=== PATIENT | female | born 1980 | race African-American/Black ===

== ENCOUNTER 2017-02-10 09:43 | Outpatient (CLI) | payer MEDICARE, MEDICAID ==
[2017-02-10 11:03] LABS: #Basophils 0.1 thou/uL (0.0-0.2); #Eosinphils 0.1 thou/uL (0.0-0.7); #Lymphocytes 2.2 thou/uL (1.20-3.40); #Monocytes 0.6 thou/uL (0.11-0.59); #Neutrophils 4.5 thou/uL (1.40-6.50); %Basophils 0.8 % (0.0-1.0); %Eosinophils 1.7 % (0.0-10.0); %Lymphocytes 29.2 % (21.0-51.0); %Monocytes 8.3 % (0.0-10.0); %Neutrophils 60.1 % (42.0-75.0); Hemoglobin 11.1 g/dL (12.0-16.0); Mean Corpuscular HGB CONC 32.6 g/dL (32.0-36.0); Mean Corpuscular Volume 86.1 fl (81.0-99.0); Mean Platelet Volume 8.5 fL (7.4-10.4); Platelet Count 281 thou/uL (130-400); RBC Distribution Width 13.9 % (11.5-14.5); Red Blood Cell (RBC) Count 3.96 mill/uL (4.20-5.40); White Blood Cell (WBC) Count 7.4 thou/uL (4.8-10.8)
[2017-02-10 11:18] LABS: Hemoglobin A1c 5.3 % (4.0-6.0)
[2017-02-10 11:20] LABS: ALT (SGPT) 12 U/L (0-55); AST (SGOT) 13 U/L (5-34); Albumin 3.9 g/dL (3.5-5.0); Alkaline Phosphatase 95 U/L (40-150); Anion Gap 13 mmol/L (10-20); BUN (Urea Nitrogen) 10 mg/dL (7.0-18.7); Bilirubin, Total 0.5 mg/dL (0.2-1.2); Calc. Creatinine Clearance 0 mL/min (70-130); Calcium 8.8 mg/dL (7.8-10.44); Carbon Dioxide 23 mmol/L (22-29); Chloride 107 mmol/L (98-107); Cholesterol 125 mg/dL (< 200 Desired); Estimated GFR-MDRD Greater than 90; Globulin 3.7 g/dL (2.4-3.5); Glucose 116 mg/dL (70-105); HDL Cholesterol 31 mg/dL (>60 Neg Risk); LDL Cholesterol, Calculated 82 mg/dL; Potassium 3.4 mmol/L (3.5-5.1); Protein, Total 7.6 g/dL (6.0-8.3); Sodium 140 mmol/L (136-145); Triglycerides 61 mg/dL (Less than 150)
[2017-02-10 17:03] LABS: Creatinine, Urine 200.5 mg/dL (47-110); Microalbumin Urine 1.8 mg/dL (0.5-50.0)
== END 2017-02-10 09:44 | disposition home or self-care (01) ==
LOC: MADLABBHPM 09:43
PROVIDERS: ATTEND Family Medicine
DX: E11.9 Type 2 diabetes mellitus without complications (principal)
CPT/HCPCS: 36415; 80053; 80061; 82043; 83036; 85025

== ENCOUNTER 2017-05-25 09:19 | Outpatient (CLI) | payer MEDICARE, MEDICAID ==
[2017-05-25 10:01] LABS: ALT (SGPT) 11 U/L (8-55); AST (SGOT) 10 U/L (5-34); Albumin 3.8 g/dL (3.5-5.0); Alkaline Phosphatase 108 U/L (40-150); Anion Gap 14 mmol/L (10-20); BUN (Urea Nitrogen) 10 mg/dL (7.0-18.7); Bilirubin, Total 0.5 mg/dL (0.2-1.2); Calc. Creatinine Clearance 0 mL/min (70-130); Calcium 8.9 mg/dL (7.8-10.44); Carbon Dioxide 23 mmol/L (22-29); Cardiac Risk 4.4 (Less than 4.5); Chloride 108 mmol/L (98-107); Cholesterol 145 mg/dl (< 200 Desired); Estimated GFR-MDRD Greater than 90; Globulin 4.2 g/dL (2.4-3.5); Glucose 123 mg/dL (70-105); HDL Cholesterol 33 mg/dL (>60 Neg Risk); LDL Cholesterol, Calculated 98 mg/dL; Potassium 3.5 mmol/L (3.5-5.1); Sodium 141 mmol/L (136-145); Triglycerides 72 mg/dL (Less than 150)
[2017-05-25 10:32] LABS: #Basophils 0.1 thou/uL (0.0-0.2); #Eosinphils 0.1 thou/uL (0.0-0.7); #Lymphocytes 2.9 thou/uL (1.20-3.40); #Monocytes 0.7 thou/uL (0.11-0.59); #Neutrophils 5.4 thou/uL (1.40-6.50); %Basophils 0.7 % (0.0-1.0); %Eosinophils 1.5 % (0.0-10.0); %Monocytes 7.1 % (0.0-10.0); %Neutrophils 58.6 % (42.0-75.0); Hemoglobin 10.8 g/dL (12.0-16.0); Mean Corpuscular HGB CONC 31.9 g/dL (32.0-36.0); Mean Corpuscular Hemoglobin 27.4 pg (27.0-31.0); Mean Platelet Volume 8.5 fL (7.4-10.4); Platelet Count 329 thou/uL (130-400); RBC Distribution Width 14.4 % (11.5-14.5); Red Blood Cell (RBC) Count 3.93 mill/uL (4.20-5.40); White Blood Cell (WBC) Count 9.1 thou/uL (4.8-10.8)
[2017-05-25 10:54] LABS: Hemoglobin A1c 5.4 % (4.0-6.0)
== END 2017-05-25 09:20 | disposition home or self-care (01) ==
LOC: MADLABBHPM 09:19
PROVIDERS: ATTEND Family Medicine
DX: E11.9 Type 2 diabetes mellitus without complications (principal); E66.9 Obesity, unspecified; I10 Essential (primary) hypertension
CPT/HCPCS: 36415; 80053; 80061; 83036; 85025

== ENCOUNTER 2017-10-18 15:58 | Emergency (ER) | payer MEDICARE, MEDICAID ==
[2017-10-18] MEDS ORDERED: Nitroglycerin 0.4 MG TAB 1 EACH ONE (16:16)
[2017-10-18 16:28] LABS: #Basophils 0.1 thou/uL (0.0-0.2); #Eosinphils 0.2 thou/uL (0.0-0.7); #Lymphocytes 2.6 thou/uL (1.20-3.40); #Monocytes 0.6 thou/uL (0.11-0.59); #Neutrophils 3.9 thou/uL (1.40-6.50); %Basophils 1.3 % (0.0-1.0); %Eosinophils 2.6 % (0.0-10.0); %Neutrophils 53.1 % (42.0-75.0); Hemoglobin 10.5 g/dL (12.0-16.0); Mean Corpuscular HGB CONC 31.5 g/dL (32.0-36.0); Mean Corpuscular Hemoglobin 26.3 pg (27.0-31.0); Mean Corpuscular Volume 83.6 fl (81.0-99.0); Mean Platelet Volume 7.8 fL (7.4-10.4); Platelet Count 351 thou/uL (130-400); White Blood Cell (WBC) Count 7.3 thou/uL (4.8-10.8)
[2017-10-18 16:52] LABS: CKMB 0.9 ng/mL (0-6.6); Troponin I Less than 0.010 ng/mL (< 0.028)
[2017-10-18 16:57] LABS: ALT (SGPT) Less than 6 U/L (8-55); AST (SGOT) 9 U/L (5-34); Albumin 3.8 g/dL (3.5-5.0); Alkaline Phosphatase 116 U/L (40-150); Anion Gap 16 mmol/L (10-20); BUN (Urea Nitrogen) 11 mg/dL (7.0-18.7); Bilirubin, Total 0.3 mg/dL (0.2-1.2); CK (CPK) 138 U/L (29-168); Calc. Creatinine Clearance 0 mL/min (70-130); Calcium 8.7 mg/dL (7.8-10.44); Carbon Dioxide 20 mmol/L (22-29); Chloride 109 mmol/L (98-107); Estimated GFR-MDRD 80; Globulin 3.9 g/dL (2.4-3.5); Glucose 130 mg/dL (70-105); Potassium 4.4 mmol/L (3.5-5.1); Protein, Total 7.7 g/dL (6.0-8.3); Sodium 141 mmol/L (136-145)
--- NOTE | 2017-10-18 17:02 | RAD ---
UPRIGHT PORTABLE CHEST ONE VIEW: History: 36-year-old female with chest pain for one day. History of congestive heart failure. FINDINGS: Left ICD. Minimal cardiomegaly. No confluent pneumonia, overt edema or pleural effusion. IMPRESSION: No acute intrathoracic disease. Minimal cardiomegaly. Stable appearance. POS: [facility]
[2017-10-18 18:54] LABS: CKMB 0.9 ng/mL (0-6.6); Troponin I 0.015 ng/mL (< 0.028)
== END 2017-10-18 19:05 | disposition home or self-care (01) ==
LOC: MADERS 15:58
DX: R07.89 Other chest pain (principal); E11.9 Type 2 diabetes mellitus without complications; F32.9 Major depressive disorder, single episode, unspecified; I11.0 Hypertensive heart disease with heart failure; I50.9 Heart failure, unspecified; Z79.899 Other long term (current) drug therapy
CPT/HCPCS: 36415; 71010; 80053; 82553; 83880; 84484; 85025; 85379; 93005; 94760

== ENCOUNTER 2019-01-09 11:02 | Emergency (ER) | payer MEDICAID ==
[2019-01-09] MEDS ORDERED: Ketorolac Tromethamine 60 MG/2 ML VIAL ONE (11:22)
--- NOTE | 2019-01-09 12:14 | RAD ---
PA AND LATERAL CHEST XRAY: DATE: 01/09/2019. HISTORY: Chest pain. COMPARISON: 10/18/2017. FINDINGS: Single-lead left subclavian AICD device remains in place. Cardiac silhouette remains enlarged The p ulmonary vasculature is within normal limits. The lungs are clear. There has been no interval vivas e when compared to the prior exam. Lateral view is under penetrated limiting evaluation, but no pleu ral effusion is identified. IMPRESSION: 1. Stable cardiomegaly without overt congestive heart failure. 2. No acute cardiopulmonary process. POS: [facility]
== END 2019-01-09 12:05 | disposition home or self-care (01) ==
LOC: MADERS 11:02
DX: R07.89 Other chest pain (principal); I11.0 Hypertensive heart disease with heart failure; I50.9 Heart failure, unspecified; E11.9 Type 2 diabetes mellitus without complications; F32.9 Major depressive disorder, single episode, unspecified; Z79.899 Other long term (current) drug therapy
CPT/HCPCS: 71046; 93005; 96372; J1885

== ENCOUNTER 2019-01-25 14:49 | Outpatient (CLI) | payer MEDICAID ==
--- NOTE | 2019-01-25 15:48 | RAD ---
STANDING VIEWS OF BOTH KNEES: 01/25/19 HISTORY: Bilateral knee pain. There is mild bilateral medial compartment narrowing. There is no fractures or joint effusion. IMPRESSION: Mild bilateral medial compartment narrowing. POS: [facility]
== END 2019-01-25 14:50 | disposition home or self-care (01) ==
LOC: MADRAD 14:49
PROVIDERS: ATTEND Family Medicine
DX: M25.561 Pain in right knee (principal); M25.562 Pain in left knee; M25.861 Other specified joint disorders, right knee; M25.862 Other specified joint disorders, left knee
CPT/HCPCS: 73565

== ENCOUNTER 2020-05-10 12:52 | Emergency (ER) | payer MEDICARE, OTHER ==
[2020-05-10 13:50] LABS: Bilirubin Negative (Negative); Blood, Urine Trace (Negative); Glucose, Urine (Dipstick) Negative (Negative); Ketone, Urine Negative (Negative); Leukocyte Negative (Negative); Nitrite Negative (Negative); Protein, Urine (Dipstick) 100 mg/dL (Neg-Trace); Specific Gravity, Urine 1.025 (1.005-1.030)
[2020-05-10 13:52] LABS: Clarity Slightly Cloudy (Clear); RBC/HPF 0-3 HPF (0-3); WBC/HPF 0-3 HPF (0-3)
[2020-05-10 13:53] LABS: Bacteria/HPF 2+ HPF (None Seen)
[2020-05-10 13:56] LABS: Amphetamine Not Detected (NotDetected); Barbiturates Screen Not Detected (NotDetected); Benzodiazepine Screen Not Detected (NotDetected); Cocaine Metabolite Screen Not Detected (NotDetected); Medtox Control Line Valid? VALID (VALID); Methadone Not Detected (NotDetected); Methamphetamine Not Detected (NotDetected); Opiate Screen Not Detected (NotDetected); Oxycodone Screen Not Detected (NotDetected); Phencyclidine (PCP) Not Detected (NotDetected); THC/Cannabinoid Screen Not Detected (NotDetected); Tricyclic Screen Not Detected (NotDetected)
[2020-05-10 14:00] LABS: #Basophils 0.1 thou/uL (0.0-0.2); #Eosinphils 0.1 thou/uL (0.0-0.7); #Lymphocytes 1.3 thou/uL (1.20-3.40); #Monocytes 0.8 thou/uL (0.11-0.59); #Neutrophils 5.5 thou/uL (1.40-6.50); %Basophils 1.1 % (0.0-1.0); %Eosinophils 0.9 % (0.0-10.0); %Lymphocytes 16.7 % (21.0-51.0); %Monocytes 10.1 % (0.0-10.0); %Neutrophils 71.3 % (42.0-75.0); Anisocytosis SLIGHT = 6-15 cells (100X) (0-5/hpf); BHCG - Serum Negative (NEGATIVE); Band 2 % (5-11); Hemoglobin 8.7 g/dL (12.0-16.0); Hypochromia MODERATE=16-30 cells (100X) (0-5/hpf); Lymphocytes 13 % (21-51); MDiff Complete? YES; Macrocytosis SLIGHT = 6-15 cells (100X) (0-5/hpf); Mean Corpuscular HGB CONC 27.5 g/dL (32.0-36.0); Mean Platelet Volume 8.3 fL (7.4-10.4); Monocytes 10 % (0-10); Neutrophil 75 % (42-75); Platelet Count 322 thou/uL (130-400); Platelet Morphology Comment Appears Adequate; RBC Distribution Width 18.1 % (11.5-14.5); Red Blood Cell (RBC) Count 4.61 mill/uL (4.20-5.40); White Blood Cell (WBC) Count 7.8 thou/uL (4.8-10.8)
[2020-05-10 14:01] LABS: Pregs Control Background? CLEAR/WHITE (CLR/WHITE); Pregs Control Bar Appear? YES (CONTROL BAR)
[2020-05-10 14:03] LABS: ALT (SGPT) 24 U/L (8-55); AST (SGOT) 29 U/L (5-34); Albumin 3.4 g/dL (3.5-5.0); Alcohol Less than 10 mg/dL (Less than 10); Alkaline Phosphatase 130 U/L (40-110); Anion Gap 17 mmol/L (10-20); BUN (Urea Nitrogen) 7 mg/dL (7.0-18.7); Calc. Creatinine Clearance 0 mL/min (70-130); Calcium 7.6 mg/dL (7.8-10.44); Carbon Dioxide 36 mmol/L (22-29); Chloride 97 mmol/L (98-107); Estimated GFR-MDRD 80; Globulin 3.3 g/dL (2.4-3.5); Glucose 120 mg/dL (70-105); Protein, Total 6.7 g/dL (6.0-8.3); Sodium 147 mmol/L (136-145)
[2020-05-10 14:13] LABS: Potassium 2.6 mmol/L (3.5-5.1)
[2020-05-10] MEDS ORDERED: NS 0.9% w/ 40 MEQ KCL 1,000 ML IV ONE (14:39)
[2020-05-10] MEDS ORDERED: Aspirin Chewable 81 MG TAB ONE (14:42)
--- NOTE | 2020-05-10 15:41 | RAD ---
FRONTAL RADIOGRAPH CHEST PORTABLE UPRIGHT: Date: 05-10-2020 Comparison: 07-13-19 History: Syncope FINDINGS: Shallow inspiration and boy habitus limit detained assessment. There is marked enlargement of the car diac silhouette suggesting cardiomegaly and/or paracardial fluid. Stable transvenous pacing device. N o pneumothorax, lobar consolidation, or alveolar edema. Assessment of the lung bases is limited on th e basis of body habitus and enlarged cardiac silhouette. IMPRESSION: Portable frontal chest radiograph as described above. POS: [facility]
== END 2020-05-10 16:01 | disposition short-term general hospital (02) ==
LOC: MADERS 12:52
DX: R55 Syncope and collapse (principal); R79.89 Other specified abnormal findings of blood chemistry; E87.0 Hyperosmolality and hypernatremia; E87.6 Hypokalemia; D50.9 Iron deficiency anemia, unspecified; I11.0 Hypertensive heart disease with heart failure; I50.9 Heart failure, unspecified; I48.91 Unspecified atrial fibrillation; F32.9 Major depressive disorder, single episode, unspecified; Z79.899 Other long term (current) drug therapy
CPT/HCPCS: 36415; 71045; 80053; 80306; 80307; 81003; 81015; 82553; 84484; 84703; 85025; 93005; J3480

== ENCOUNTER 2020-05-24 13:57 | Emergency (ER) | payer OTHER ==
--- NOTE | 2020-05-24 15:25 | RAD ---
RIGHT FOOT THREE VIEWS: History: Pain FINDINGS: Minimal dorsal soft tissue swelling of the forefoot. Questionable hairline fracture of the medial asp ect of the distal proximal phalanx of the great toe, please correlate clinically. Calcaneal plantar a nd Achilles enthesophytes. IMPRESSION: Soft tissue swelling of the forefoot. Questionable hairline fracture of the medial aspect of the dist al portion of the proximal phalanx of the fifth toe. Please correlate clinically with point yarelines s. POS: [facility]
== END 2020-05-24 15:12 | disposition home or self-care (01) ==
LOC: MADERS 13:57
DX: S92.511A Displaced fracture of proximal phalanx of right lesser toe(s), initial encounter for closed fracture (principal); I11.0 Hypertensive heart disease with heart failure; I50.9 Heart failure, unspecified; E11.9 Type 2 diabetes mellitus without complications; Z79.899 Other long term (current) drug therapy; X58.XXXA Exposure to other specified factors, initial encounter

== ENCOUNTER 2020-07-29 07:32 | Outpatient (CLI) | payer MEDICARE, MEDICAID ==
[2020-07-29 09:48] LABS: Anion Gap 16 mmol/L (10-20); BUN (Urea Nitrogen) 13 mg/dL (7.0-18.7); Calcium 8.7 mg/dL (7.8-10.44); Carbon Dioxide 27 mmol/L (22-29); Chloride 100 mmol/L (98-107); Estimated GFR-MDRD Greater than 90; Potassium 3.6 mmol/L (3.5-5.1); Sodium 139 mmol/L (136-145)
[2020-07-29 09:49] LABS: Glucose 155 mg/dL (70-105)
== END 2020-07-29 07:33 | disposition home or self-care (01) ==
LOC: MADLAB 07:32
PROVIDERS: ATTEND Nurse Practitioner Family
DX: I50.20 Unspecified systolic (congestive) heart failure (principal)
CPT/HCPCS: 36415; 80048; 83880

== ENCOUNTER 2021-05-31 19:59 | Emergency (ER) | payer MEDICARE, MEDICAID ==
[2021-05-31] MEDS ORDERED: Sodium Chloride 0.9% 1,000 ML ONE ×2 (20:58→22:10)
[2021-05-31 21:12] LABS: Base Excess-Venous -1.2 mmol/L (-2.0 to 3.0); Bicarbonate (HCO3v) 23.1 mmol/L (22.0-28.0); CO2 Tension (PvCO2) 36.2 mmHg (42.0-51.0); Chloride 115 mmol/L (98-107); Hemoglobin - Calc 12.5 g/dL (12.0-16.0); Potassium 6.2 mmol/L (3.5-5.1); Sodium 146 mmol/L (138-145); T. Carbon Dioxide 24.2 mmol/L (22.0-28.0); vO2 Saturation-calc 99.6 % (60.0-85.0)
[2021-05-31 21:13] LABS: #Basophils 0.1 thou/uL (0.0-0.2); #Lymphocytes 1.3 thou/uL (1.20-3.40); #Monocytes 0.9 thou/uL (0.11-0.59); %Basophils 0.4 % (0.0-1.0); %Lymphocytes 6.7 % (21.0-51.0); %Monocytes 4.6 % (0.0-10.0); %Neutrophils 88.2 % (42.0-75.0); Hemoglobin 10.8 g/dL (12.0-16.0); Mean Corpuscular HGB CONC 28.9 g/dL (32.0-36.0); Mean Corpuscular Hemoglobin 27.1 pg (27.0-31.0); Mean Corpuscular Volume 93.8 fL (78.0-98.0); Mean Platelet Volume 10.1 fL (7.4-10.4); Platelet Count 208 thou/uL (130-400); Platelet Morphology Comment Appears Adequate; RBC Distribution Width 15.4 % (11.5-14.5); RBC Morphology Normal; White Blood Cell (WBC) Count 19.3 thou/uL (4.8-10.8)
[2021-05-31 21:21] LABS: ALT (SGPT) 40 U/L (8-55); AST (SGOT) 25 U/L (5-34); Albumin 3.9 g/dL (3.5-5.0); Alkaline Phosphatase 104 U/L (40-110); Anion Gap 22 mmol/L (10-20); BUN (Urea Nitrogen) 65 mg/dL (7.0-18.7); Bilirubin, Total 0.6 mg/dL (0.2-1.2); Calc. Creatinine Clearance 0 mL/min (70-130); Carbon Dioxide 21 mmol/L (22-29); Chloride 107 mmol/L (98-107); Globulin 4.3 g/dL (2.4-3.5); Lipase 36 U/L (8-78); Magnesium 2.9 mg/dL (1.6-2.6); Potassium 6.1 mmol/L (3.5-5.1); Protein, Total 8.2 g/dL (6.0-8.3); Sodium 144 mmol/L (136-145)
[2021-05-31 21:37] LABS: CKMB 1.1 ng/mL (0-6.6)
[2021-05-31 21:38] LABS: Glucose 1349 mg/dL (70-105)
[2021-05-31] MEDS ORDERED: Insulin Regular 300 UNITS/3 ML VIAL ONE (22:10)
[2021-05-31] MEDS ORDERED: Sodium Chloride 0.9% 100 ML ONE (22:10)
[2021-05-31 22:17] LABS: Bilirubin Negative (Negative); Blood, Urine Trace (Negative); Clarity Clear (Clear); Glucose, Urine (Dipstick) >=1000 mg/dL (Negative); Ketone, Urine Negative (Negative); Leukocyte Small (Negative); Nitrite Negative (Negative); Protein, Urine (Dipstick) 30 mg/dL (Neg-Trace); Specific Gravity, Urine 1.015 (1.005-1.030); Urobilinogen 0.2 mg/dL (Less than 2)
[2021-05-31 22:25] LABS: Mucous/LPF 1+ LPF (<2+)
== END 2021-05-31 22:44 | disposition short-term general hospital (02) ==
LOC: MADERS 19:59
DX: E11.00 Type 2 diabetes mellitus with hyperosmolarity without nonketotic hyperglycemic-hyperosmolar coma (NKHHC) (principal); E86.0 Dehydration; R79.89 Other specified abnormal findings of blood chemistry; R26.9 Unspecified abnormalities of gait and mobility; I25.10 Atherosclerotic heart disease of native coronary artery without angina pectoris; I11.0 Hypertensive heart disease with heart failure; I50.9 Heart failure, unspecified; I25.2 Old myocardial infarction; E66.9 Obesity, unspecified; Z79.899 Other long term (current) drug therapy; Z79.84 Long term (current) use of oral hypoglycemic drugs
CPT/HCPCS: 36415; 36416; 51701; 71045; 80053; 81003; 81015; 82330; 82553; 82803; 83605; 83690; 83735; 83880; 84443; 84484; 85025; 87040; 93005; 94760; 96365; 96374; 96375; J1815; J1956; J3490; J7050

== ENCOUNTER 2021-07-03 16:56 | Emergency (ER) | payer MEDICARE, OTHER ==
[2021-07-03] MEDS ORDERED: Furosemide 40 MG/4 ML VIAL ONE (17:50)
[2021-07-03] MEDS ORDERED: Aspirin Chewable 81 MG TAB ONE (17:50)
[2021-07-03] MEDS ORDERED: Nitroglycerin 2% Ointment 1 INCH/1 GM Packet ONE (17:50)
[2021-07-03 18:11] LABS: Anisocytosis SLIGHT = 6-15 cells (100X) (0-5/hpf); Band 1 % (5-11); Hemoglobin 10.3 g/dL (12.0-16.0); Hypochromia SLIGHT = 6-15 cells (100X) (0-5/hpf); Lymphocytes 7 % (21-51); MDiff Complete? YES; Mean Corpuscular HGB CONC 30.2 g/dL (32.0-36.0); Mean Corpuscular Hemoglobin 27.1 pg (27.0-31.0); Mean Corpuscular Volume 89.5 fL (78.0-98.0); Mean Platelet Volume 8.1 fL (7.4-10.4); Monocytes 6 % (0-10); Neutrophil 86 % (42-75); Platelet Count 323 thou/uL (130-400); Platelet Morphology Comment Appears Adequate; RBC Distribution Width 16.1 % (11.5-14.5); Red Blood Cell (RBC) Count 3.79 mill/uL (4.20-5.40); White Blood Cell (WBC) Count 23.6 thou/uL (4.8-10.8)
[2021-07-03 18:15] LABS: ALT (SGPT) 29 U/L (8-55); AST (SGOT) 24 U/L (5-34); Albumin 3.4 g/dL (3.5-5.0); Alkaline Phosphatase 101 U/L (40-110); Anion Gap 18 mmol/L (10-20); BUN (Urea Nitrogen) 30 mg/dL (7.0-18.7); Bilirubin, Total 0.9 mg/dL (0.2-1.2); Calc. Creatinine Clearance 0 mL/min (70-130); Calcium 9.7 mg/dL (7.8-10.44); Carbon Dioxide 22 mmol/L (22-29); Chloride 103 mmol/L (98-107); Globulin 4.3 g/dL (2.4-3.5); Glucose 350 mg/dL (70-105); Lipase 28 U/L (8-78); Potassium 5.2 mmol/L (3.5-5.1); Protein, Total 7.7 g/dL (6.0-8.3); Sodium 138 mmol/L (136-145)
== END 2021-07-03 20:46 | disposition short-term general hospital (02) ==
LOC: MADERS 16:56
DX: J90 Pleural effusion, not elsewhere classified (principal); D72.829 Elevated white blood cell count, unspecified; I11.0 Hypertensive heart disease with heart failure; I50.9 Heart failure, unspecified; I25.2 Old myocardial infarction; I25.10 Atherosclerotic heart disease of native coronary artery without angina pectoris; E11.9 Type 2 diabetes mellitus without complications; I49.01 Ventricular fibrillation; E66.9 Obesity, unspecified; Z79.899 Other long term (current) drug therapy; Z79.84 Long term (current) use of oral hypoglycemic drugs
CPT/HCPCS: 36415; 71045; 80053; 83605; 83690; 83880; 84484; 85025; 87040; 93005; 96365; 96366; 96375; J1940; J1956

== ENCOUNTER 2022-01-04 12:22 | Outpatient (CLI) | payer MEDICARE ==
[2022-01-04 12:57] LABS: #Basophils 0.1 thou/uL (0.0-0.2); #Eosinphils 0.1 thou/uL (0.0-0.7); #Lymphocytes 1.8 thou/uL (1.20-3.40); #Monocytes 0.6 thou/uL (0.11-0.59); #Neutrophils 3.3 thou/uL (1.40-6.50); %Basophils 0.9 % (0.0-1.0); %Eosinophils 1.9 % (0.0-10.0); %Lymphocytes 30.9 % (21.0-51.0); %Monocytes 9.8 % (0.0-10.0); %Neutrophils 56.6 % (42.0-75.0); Hemoglobin 10.3 g/dL (12.0-16.0); Mean Corpuscular HGB CONC 31.1 g/dL (32.0-36.0); Mean Corpuscular Hemoglobin 27.1 pg (27.0-31.0); Mean Corpuscular Volume 87.2 fL (78.0-98.0); Mean Platelet Volume 7.6 fL (7.4-10.4); Platelet Count 255 thou/uL (130-400); RBC Distribution Width 15.4 % (11.5-14.5); Red Blood Cell (RBC) Count 3.81 mill/uL (4.20-5.40); White Blood Cell (WBC) Count 5.7 thou/uL (4.8-10.8)
[2022-01-04 13:12] LABS: ALT (SGPT) 30 U/L (8-55); AST (SGOT) 15 U/L (5-34); Albumin 3.7 g/dL (3.5-5.0); Alkaline Phosphatase 93 U/L (40-110); Anion Gap 12 mmol/L (10-20); BUN (Urea Nitrogen) 13 mg/dL (7.0-18.7); Calc. Creatinine Clearance 0 mL/min (70-130); Calcium 8.8 mg/dL (7.8-10.44); Carbon Dioxide 24 mmol/L (22-29); Cardiac Risk 3.8 (Less than 4.5); Chloride 112 mmol/L (98-107); Cholesterol 118 mg/dl (< 200 Desired); Globulin 3.2 g/dL (2.4-3.5); Glucose 104 mg/dL (70-105); HDL Cholesterol 31 mg/dL (>60 Neg Risk); LDL Cholesterol, Calculated 75 mg/dL; Magnesium 1.7 mg/dL (1.6-2.6); Potassium 3.8 mmol/L (3.5-5.1); Protein, Total 6.9 g/dL (6.0-8.3); Sodium 144 mmol/L (136-145); Triglycerides 61 mg/dL (Less than 150)
[2022-01-04 16:51] LABS: Creatinine, Urine 375.32 mg/dL (47-110); Microalbumin Urine 31.9 mg/dL (0.5-50.0)
== END 2022-01-04 12:23 | disposition home or self-care (01) ==
LOC: MADLAB 12:22 → MADRAD 12:23
PROVIDERS: ATTEND Family Medicine
DX: R06.00 Dyspnea, unspecified (principal); E11.9 Type 2 diabetes mellitus without complications; R29.898 Other symptoms and signs involving the musculoskeletal system; I50.9 Heart failure, unspecified; R91.8 Other nonspecific abnormal finding of lung field
CPT/HCPCS: 36415; 71046; 80053; 80061; 82043; 83735; 83880; 84443; 85025

== ENCOUNTER 2022-05-20 17:01 | Emergency (ER) | payer MEDICARE, MEDICAID ==
[2022-05-20 17:46] LABS: Hemoglobin 11.1 g/dL (12.0-16.0); Mean Corpuscular HGB CONC 29.5 g/dL (32.0-36.0); Mean Corpuscular Hemoglobin 22.6 pg (27.0-31.0); Mean Corpuscular Volume 76.5 fL (78.0-98.0); Mean Platelet Volume 10.8 fL (7.4-10.4); Platelet Count 303 thou/uL (130-400); RBC Distribution Width 18.1 % (11.5-14.5); Red Blood Cell (RBC) Count 4.93 mill/uL (4.20-5.40); White Blood Cell (WBC) Count 8.4 thou/uL (4.8-10.8)
[2022-05-20 18:05] LABS: ALT (SGPT) 14 U/L (8-55); AST (SGOT) 12 U/L (5-34); Albumin 4.2 g/dL (3.5-5.0); Alkaline Phosphatase 116 U/L (40-110); Anion Gap 15 mmol/L (10-20); BUN (Urea Nitrogen) 18 mg/dL (7.0-18.7); Bilirubin, Total 0.9 mg/dL (0.2-1.2); Calc. Creatinine Clearance 0 mL/min (70-130); Calcium 9.3 mg/dL (7.8-10.44); Carbon Dioxide 29 mmol/L (22-29); Chloride 102 mmol/L (98-107); Estimated GFR 47; Globulin 3.6 g/dL (2.4-3.5); Glucose 132 mg/dL (70-105); Potassium 3.6 mmol/L (3.5-5.1); Protein, Total 7.8 g/dL (6.0-8.3); Sodium 142 mmol/L (136-145)
[2022-05-20 18:28] LABS: CKMB 0.5 ng/mL (0-6.6)
[2022-05-20 19:23] LABS: #Basophils 0.1 thou/uL (0.0-0.2); #Eosinphils 0.1 thou/uL (0.0-0.7); #Lymphocytes 2.6 thou/uL (1.20-3.40); #Monocytes 0.7 thou/uL (0.11-0.59); #Neutrophils 4.9 thou/uL (1.40-6.50); %Basophils 1.2 % (0.0-1.0); %Eosinophils 1.6 % (0.0-10.0); %Lymphocytes 30.3 % (21.0-51.0); %Monocytes 8.7 % (0.0-10.0); %Neutrophils 58.3 % (42.0-75.0); MDiff Complete? YES; Microcytosis SLIGHT = 6-15 cells (100X) (0-5/hpf); Platelet Morphology Comment Appears Adequate
[2022-05-20] MEDS ORDERED: Furosemide 40 MG/4 ML VIAL ONE (19:24)
[2022-05-20] MEDS ORDERED: Aspirin Chewable 81 MG TAB ONE (19:24)
[2022-05-20 21:10] LABS: Troponin I 0.042 ng/mL (< 0.028)
== END 2022-05-20 21:40 | disposition short-term general hospital (02) ==
LOC: MADERS 17:01
DX: R07.89 Other chest pain (principal); R77.8 Other specified abnormalities of plasma proteins; I49.3 Ventricular premature depolarization; I45.89 Other specified conduction disorders; I11.0 Hypertensive heart disease with heart failure; I50.9 Heart failure, unspecified; I25.10 Atherosclerotic heart disease of native coronary artery without angina pectoris; I25.2 Old myocardial infarction; E11.9 Type 2 diabetes mellitus without complications; I49.01 Ventricular fibrillation; E66.9 Obesity, unspecified; Z68.45 Body mass index [BMI] 70 or greater, adult; Z95.0 Presence of cardiac pacemaker; Z79.4 Long term (current) use of insulin; Z79.899 Other long term (current) drug therapy
CPT/HCPCS: 36416; 71045; 80053; 82553; 83735; 83880; 84443; 84484; 85025; 93005; 94760; 96374; J1940

== ENCOUNTER 2022-07-01 11:24 | Outpatient (CLI) | payer OTHER ==
[2022-07-01 12:18] LABS: Anion Gap 17 mmol/L (10-20); BUN (Urea Nitrogen) 15 mg/dL (7.0-18.7); Calc. Creatinine Clearance 0 mL/min (70-130); Calcium 9.6 mg/dL (7.8-10.44); Carbon Dioxide 29 mmol/L (22-29); Chloride 102 mmol/L (98-107); Estimated GFR 46; Glucose 141 mg/dL (70-105); Potassium 4.4 mmol/L (3.5-5.1); Sodium 144 mmol/L (136-145)
== END 2022-07-01 11:25 | disposition home or self-care (01) ==
LOC: MADLABBHPM 11:24 → MADLAB 11:25
PROVIDERS: ATTEND Family Medicine
DX: I50.32 Chronic diastolic (congestive) heart failure (principal)
CPT/HCPCS: 80048; 83880

== ENCOUNTER 2022-09-26 17:02 | Emergency (ER) | payer MEDICAID, MEDICARE, OTHER | END 2022-09-26 19:10 | disposition home or self-care (01) | LOC: MADERS 17:02 | DX: Z00.00 Encounter for general adult medical examination without abnormal findings (principal); I11.0 Hypertensive heart disease with heart failure; I50.9 Heart failure, unspecified; E11.9 Type 2 diabetes mellitus without complications; E66.9 Obesity, unspecified; Z79.899 Other long term (current) drug therapy | CPT/HCPCS: 36416; 71045; 93005 ==